=== PATIENT | female | born 1985 | race Caucasian/White ===

== ENCOUNTER 2018-06-19 13:06 | Emergency (ER) | payer MEDICAID ==
[~2018-06-19] VITALS: Ht 165.1 cm; Wt 146.5 kg
[2018-06-19 13:32] VITALS: BP 136/88; Ht 165.1 cm; Wt 146.5 kg
== END 2018-06-19 14:48 | disposition home or self-care (01) ==
LOC: ED 13:06
DX: J32.9 Chronic sinusitis, unspecified (principal); H66.92 Otitis media, unspecified, left ear; I10 Essential (primary) hypertension; E11.9 Type 2 diabetes mellitus without complications; E78.00 Pure hypercholesterolemia, unspecified; F41.9 Anxiety disorder, unspecified
CPT/HCPCS: 82962

== ENCOUNTER 2020-02-16 13:23 | Emergency (ER) | payer MEDICAID ==
[~2020-02-16] VITALS: Ht 165.1 cm; Wt 134.3 kg
[2020-02-16 13:39] VITALS: Ht 165.1 cm; Wt 134.3 kg
[2020-02-16 16:27] LABS: UA SPECIFIC GRAVITY >=1.030 (1.005-1.035); microscopic required? YES; urine erythrocyte 3+ (NEGATIVE)
[2020-02-16 17:14] VITALS: BP 154/98
[2020-02-17 08:07] LABS: RAPID PLASMA REAGIN Non Reactive (Non Reactive)
== END 2020-02-16 17:14 | disposition home or self-care (01) ==
LOC: ED 13:23
PROVIDERS: Emergency Medicine
DX: N39.0 Urinary tract infection, site not specified (principal); A60.00 Herpesviral infection of urogenital system, unspecified; I10 Essential (primary) hypertension; E11.9 Type 2 diabetes mellitus without complications; E78.00 Pure hypercholesterolemia, unspecified
CPT/HCPCS: 86694; 87491; 87591

== ENCOUNTER 2020-06-09 19:53 | Emergency (ER) | payer MEDICAID ==
[~2020-06-09] VITALS: Ht 160 cm; Wt 137.9 kg
[2020-06-09 20:00] VITALS: Ht 160 cm; Wt 137.9 kg
[2020-06-09] MEDS ORDERED: BACDS PO (21:01)
[2020-06-09] MEDS ORDERED: IBU600 M2 PO (21:01)
[2020-06-09] MEDS ORDERED: KEF500 PO (21:01)
[2020-06-09 21:26] VITALS: BP 146/87
== END 2020-06-09 21:27 | disposition home or self-care (01) ==
LOC: ED 19:53
DX: L02.211 Cutaneous abscess of abdominal wall (principal); I10 Essential (primary) hypertension; E11.9 Type 2 diabetes mellitus without complications; E78.00 Pure hypercholesterolemia, unspecified